=== PATIENT | male | born 1935 | race Caucasian/White ===

== ENCOUNTER 2023-07-21 14:17 | Emergency (ER) | payer OTHER, SELFPAY ==
[2023-07-21 14:22] VITALS: BP 104/53
[2023-07-21 14:32] VITALS: BMI 22.2
--- NOTE | 2023-07-21 15:39 | ED.GENMED ---
History of Present Illness
<Cole Love DO - Last Filed: 07/22/23 14:08>
General
Chief Complaint: Gait Dysfunction
Source: patient
Time Seen by Provider: 07/21/23 15:19
Travel History
Have you had any contact with someone who has COVID-19?: No
Do you have any symptoms of coronavirus? Fever > 100 degrees, chills, cough, shortness of breath, sore throat, loss of taste or smell, muscle aches, or headache?: No
History of Present Illness
History of Present Illness:
88-year-old male presents to the emergency room after a fall. Patient ambulates with a rolling walker. Evidently he has been having increased falls recently. Patient feels like his legs give out from under him. 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 No complaints of headache, chest pain, shortness of breath or urinary symptoms.
Past History
<Cole Love DO - Last Filed: 07/22/23 14:08>
Past History
ED Past Medical History: Arrthythmia, Cancer, CVA, HTN and Hypercholesterolemia
ED Past Surgical History: Bowel resection (ileostomy)
Social History
Tobacco: Non-smoker
Alcohol: None
Drug: None
Family History
Family History: Other (Reviewed and non-contributory)
Phy Exam
<Cole Love DO - Last Filed: 07/22/23 14:08>
Physical Exam
Physical Exam:
General: Awake, Alert, Oriented X3. No acute distress.
Vitals: unremarkable
Head: Atraumatic
Eyes: Pupils equal, EOMI
Throat: Airway intact, no exudates
Neck: Trachea midline
Lungs: Clear and equal b/l
Heart: Regular rate, no murmurs
Abd: Soft, Nontender, No pulsatile mass
Neuro: Cranial nerves intact, muscle strength equal bilaterall
Skin: Warm, dry, no rash
Extremities: pulses equal b/l, no edema, chronic changes bilateral knees suggestive of degenerative joint disease
Course
<Cole Love, DO - Last Filed: 07/22/23 14:08>
Orders/Labs/Results
Orders:
Orders
07/21/23 15:38
CT Head W/o Iv Contrast Urgent
Comment:
Reason For Exam: frequent falls.
07/21/23 15:54
Basic Metabolic Panel Urgent
Complete Blood Count/With Diff Urgent
07/21/23 18:39
Urinalysis Reflex To Culture Urgent
Date Specimen was Collected: 07/21/23
Time Specimen was Collected: 16:40
Urine Microscopic Reflex Cult Urgent
Abnormal Lab Results
07/21/23 07/21/23
15:54 18:39
RBC 3.58 L 10^6/uL
(4.70-6.10)
Hgb 11.0 L g/dL
(13.0-18.0)
Hct 33.9 L %
(39.0-52.0)
MCV 94.7 H fL
(80.0-94.0)
MCHC 32.4 L g/dL
(33.0-37.0)
Plt Count 110 L 10^3/uL
(130-400)
MPV 11.0 H fL
(7.4-10.4)
Absolute Neuts (auto) 7.1 H 10^3/uL
(1.4-6.5)
Absolute Lymphs (auto) 0.5 L 10^3/uL
(1.2-3.4)
Neutrophils % 87.6 H %
(42.2-75.2)
Lymphocytes % 6.2 L %
(20.5-51.1)
BUN 38 H mg/dl
(9-20)
Creatinine 1.7 H mg/dL
(0.7-1.3)
Leukocyte Esterase Rfl Trace A
(Negative)
07/21/23 15:54
07/21/23 15:54
Vital Signs
Initial and Last Documented VS:
Initial Vital Signs
Temp Pulse Resp BP Pulse Ox
98 F 79 18 104/53 96
07/21/23 14:22 07/21/23 14:22 07/21/23 14:22 07/21/23 14:22 07/21/23 14:22
Last Documented Vital Signs
Temp Pulse Resp BP Pulse Ox
98 F 87 20 110/50 97
07/21/23 14:22 07/21/23 21:21 07/21/23 21:21 07/21/23 21:21 07/21/23 21:21
<Miguel Flores, DO - Last Filed: 07/21/23 19:52>
Orders/Labs/Results
Orders:
Orders
07/21/23 15:38
CT Head W/o Iv Contrast Urgent
Comment:
Reason For Exam: frequent falls.
07/21/23 15:54
Basic Metabolic Panel Urgent
Complete Blood Count/With Diff Urgent
07/21/23 18:39
Urinalysis Reflex To Culture Urgent
Date Specimen was Collected: 07/21/23
Time Specimen was Collected: 16:40
Urine Microscopic Reflex Cult Urgent
Abnormal Lab Results
07/21/23 07/21/23
15:54 18:39
RBC 3.58 L 10^6/uL
(4.70-6.10)
Hgb 11.0 L g/dL
(13.0-18.0)
Hct 33.9 L %
(39.0-52.0)
MCV 94.7 H fL
(80.0-94.0)
MCHC 32.4 L g/dL
(33.0-37.0)
Plt Count 110 L 10^3/uL
(130-400)
MPV 11.0 H fL
(7.4-10.4)
Absolute Neuts (auto) 7.1 H 10^3/uL
(1.4-6.5)
Absolute Lymphs (auto) 0.5 L 10^3/uL
(1.2-3.4)
Neutrophils % 87.6 H %
(42.2-75.2)
Lymphocytes % 6.2 L %
(20.5-51.1)
BUN 38 H mg/dl
(9-20)
Creatinine 1.7 H mg/dL
(0.7-1.3)
Leukocyte Esterase Rfl Trace A
(Negative)
07/21/23 15:54
07/21/23 15:54
Vital Signs
Initial and Last Documented VS:
Initial Vital Signs
Temp Pulse Resp BP Pulse Ox
98 F 79 18 104/53 96
07/21/23 14:22 07/21/23 14:22 07/21/23 14:22 07/21/23 14:22 07/21/23 14:22
Last Documented Vital Signs
Temp Pulse Resp BP Pulse Ox
98 F 87 20 110/50 97
07/21/23 14:22 07/21/23 21:21 07/21/23 21:21 07/21/23 21:21 07/21/23 21:21
Susanlt;Cole Love DO - Last Filed: 07/22/23 14:08>
MDM/Problems Addressed
Differential Diagnosis Includes:
DJD of knees, dehydration, UTI
MDM/Problems Addressed:
Workup for fall here is unremarkable. Suspect patient had difficulty walking due to significant degenerative changes in his knees. Patient stable for discharge back to his facility.
<Cole Love DO - Last Filed: 07/22/23 14:08>
*Radiology
Radiology exam reviewed: radiology read reviewed
*Pulse Oximetry
Patient hypoxic: no
<Miguel Flores, DO - Last Filed: 07/21/23 19:52>
*Critical Care Note
Total Time (30-74mins, 75-104mins- exclusive of procedures): Not Applicable
<Miguel Flores, DO - Last Filed: 07/21/23 19:52>
Update Note
Update Note:
7:50 PM care of patient was transitioned earlier pending urinalysis. Patient presented complaining that his legs keep giving out. His workup was otherwise negative. His urine is negative for infection. On my conversation with the patient, I
discussed the plan of care was discharging home. Patient initially stated that he felt he could not go home because his legs give out. Nursing at bedside indicating that they have gone him up numerous times and he was walking with his walker. I
did offer admission to the patient and discussed PT eval and case management eval to discuss possible rehab to get his strength back up to live independently again. After going over the options, patient states he would rather go home and speak to
his doctor
ED Attending Note
<Cole Love, - Last Filed: 07/22/23 14:08>
-
Portions of this chart may have been created with voice recognition software.� Occasional wrong word or��sound alike� substitutions may have occurred due to the inherent limitations of voice recognition software.
Discharge Plan
Departure
Patient Disposition: Home (Routine Discharge)
Date of Disposition: 07/21/23
Time of Disposition: 19:51
Patient with high blood pressure during this ER visit?: No
Discharge Problem:
Weakness
Prescriptions:
No Action
atorvastatin 40 MG tablet
40 mg PO HS
aspirin [Aspir-Low] 81 MG tablet,delayed release (DR/EC)
81 mg PO BID
diazepam 5 MG tablet
5 mg PO DAILY PRN (Reason: anxiety)
cholestyramine-aspartame [Prevalite] 4 G/PKT powder in packet
0.5 pack PO BID
cholecalciferol (vitamin D3) 1,000 UNITS tablet
1,000 units PO DAILY
melatonin 3 MG capsule
3 mg PO HS
acetaminophen 325 MG tablet
650 mg PO BID
tamsulosin [Flomax] 0.4 MG capsule
0.4 mg PO HS
bupropion HCl 300 MG tablet extended release 24 hr
300 mg PO BID
psyllium husk (aspartame) [Metamucil Fiber Singles] 1 PACKET powder in packet
2 packet PO DAILY
amoxicillin-pot clavulanate 875-125 mg tablet
1 tab PO BID Qty: 19 0RF
Referrals:
Scott Orozco MD [Family Provider] -
Activity Restrictions/Additional Instructions:
Please return for any worsening symptoms.
You may return at any time if you have further concerns.
Please follow up with your doctor at the first available appointment, preferably this week.
As we discussed, I offered admission she could be evaluated by physical therapy and case management for possible short-term rehab placement. If you feel unsafe at home, you can return at any time.
Thank you for choosing [facility].
Interventions
Interventions:
*Risk Screen - Suicide Last Done: 07/21/23 14:30
*General Assessment Last Done: 07/21/23 14:30
*Neglect/Abuse Screening Last Done: 07/21/23 14:30
ED- Fall Risk Assessment Last Done: 07/21/23 14:33
*ED COVID-19 Vaccine History Last Done: 07/21/23 14:32
*Nursing Disposition Last Done: 07/21/23 21:21
ED- Neurological Assessment Last Done: 07/21/23 14:33
ED-Musculoskeletal Assessment Last Done: 07/21/23 14:35
ED Swallowing Screen Last Done: 07/21/23 21:23
Discharge Date and Time
Discharge Date/Time: 07/21/23 21:23
Print Language: SAMMARINESE
[2023-07-21 16:03] LABS: % Basophils 0.1 % (0-2); % Eosinophils 0.2 % (0-6); % Immature Granulocytes 0.4 % (0-0.5); % Lymphocytes 6.2 % (20.5-51.1); % Monocytes 5.5 % (1.7-9.3); % Neutrophils 87.6 % (42.2-75.2); Absolute Lymphocytes 0.5 10^3/uL (1.2-3.4); Absolute Monocytes 0.5 10^3/uL (0.1-0.6); Absolute Neutrophils 7.1 10^3/uL (1.4-6.5); Hematocrit 33.9 % (39.0-52.0); Mean Corp Hgb Conc. 32.4 g/dL (33.0-37.0); Mean Corpuscular Hgb 30.7 pg (27.0-31.0); Mean Corpuscular Volume 94.7 fL (80.0-94.0); Nucleated Red Blood Cells % 0 % (-); Platelet Count 110 10^3/uL (130-400); Red Blood Cell Count 3.58 10^6/uL (4.70-6.10); Red Cell Dist. Width 14.3 % (11.5-14.5); White Blood Cell Count 8.1 10^3/uL (4.8-10.8)
[2023-07-21 16:24] LABS: Blood Urea Nitrogen 38 mg/dl (9-20); Calcium 9.4 mg/dl (8.4-10.2); Carbon Dioxide 27 mmol/L (22-30); Chloride 102 mmol/L (98-107); Estimated Creatinine Clearance 28 ml/min; Glucose 96 mg/dl (70-99); Potassium 4.7 mmol/L (3.5-5.1); Sodium 138 mmol/L (135-145)
[2023-07-21 17:13] VITALS: BP 100/51
[2023-07-21 19:03] LABS: Urine Albumin Negative (Neg - Trace); Urine Bilirubin Negative (Negative); Urine Character Clear (Clear); Urine Color Yellow; Urine Glucose Negative (Negative); Urine Ketone Negative (Negative); Urine Leukocyte Trace (Negative); Urine Nitrite Negative (Negative); Urine Occult Blood Negative (Negative); Urine Urobilinogen Negative (Neg - 1+)
[2023-07-21 19:20] LABS: Urine White Cell 0-2 /HPF (0-5)
[2023-07-21 19:21] LABS: Urine Red Blood Cell None Seen /HPF (0-2)
[2023-07-21 21:21] VITALS: BP 110/50
== END 2023-07-21 21:23 | disposition home or self-care (01) ==
LOC: EMR 14:17
PROVIDERS: EMERGENCY PHYSICIAN Emergency Medicine; FAMILY PHYSICIAN Internal Medicine
DX: R53.1 Weakness (principal); R29.6 Repeated falls; I10 Essential (primary) hypertension; E78.00 Pure hypercholesterolemia, unspecified; M17.0 Bilateral primary osteoarthritis of knee; Z86.73 Personal history of transient ischemic attack (TIA), and cerebral infarction without residual deficits
CPT/HCPCS: 99284; 70450; 80048; 81003; 81015; 85025